=== PATIENT | male | born 1955 | race African-American/Black ===

== ENCOUNTER 2020-10-11 11:39 | Inpatient (IN) | payer OTHER, SELFPAY ==
[2020-10-11] MEDS ORDERED: Boostrix 0.5 ML (Tdap) VIAL ONE (11:41)
[2020-10-11 11:57] LABS: #Eosinphils 0.1 thou/uL (0.0-0.7); #Lymphocytes 1.6 thou/uL (1.20-3.40); #Monocytes 0.6 thou/uL (0.11-0.59); #Neutrophils 3.8 thou/uL (1.40-6.50); %Basophils 0.3 % (0.0-1.0); %Eosinophils 1.1 % (0.0-10.0); %Lymphocytes 26.5 % (21.0-51.0); %Monocytes 9.1 % (0.0-10.0); %Neutrophils 62.9 % (42.0-75.0); Hemoglobin 14.3 g/dL (14.0-18.0); Mean Corpuscular HGB CONC 32.3 g/dL (32.0-36.0); Mean Corpuscular Volume 83.7 fL (78.0-98.0); Mean Platelet Volume 9.5 fL (7.4-10.4); Platelet Count 140 thou/uL (130-400); RBC Distribution Width 12.9 % (11.5-14.5); Red Blood Cell (RBC) Count 5.31 mill/uL (4.70-6.10)
[2020-10-11] MEDS ORDERED: niCARdipine 20MG In NaCl 20 MG/200 ML BAG ONE (11:57)
--- NOTE | 2020-10-11 12:08 | CT ---
CT HEAD WITHOUT IV CONTRAST COMPARISON: None HISTORY: Level 2 trauma. Patient hit head with loss of consciousness. Head laceration. TECHNIQUE: Axial CT imaging at 5 mm intervals from vertex through skull base without contrast FINDINGS: There is diminished attenuation are seen in the periventricular white matter which are nonspecific bu t likely attributable to chronic small vessel ischemic changes. Low attenuation areas are seen in the left basal ganglia which are nonspecific but likely related to lacunar infarctions of indetermina te age. There is no evidence of an acute cortical infarction, hemorrhage, mass effect, or midline shift. The ventricular system is normal in size, shape, and position. Skull base has a normal CT appearance. Visualized paranasal sinuses are clear. Osseous structures appear intact.No calvarial fracture is seen. There is scalp soft tissue swelling seen at the vertex and in the posterior parietal regions as well as anterior frontal region. Subcutaneous emphysema seen in the posterior parietal region related to associated laceration. IMPRESSION: 1. No acute intracranial abnormality demonstrated. 2. Mild chronic small vessel ischemic changes with indeterminate age lacunar infarctions left basal g anglia. 3. Scalp hematoma at the vertex and in each posterior parietal region as well as anterior frontal reg ion. Evidence of laceration in the posterior parietal region. 4. Above findings discussed with Dr. Willis in the emergency department on 10/11/2020 at 1203 hours.
[2020-10-11 12:22] LABS: ALT (SGPT) 17 U/L (8-55); AST (SGOT) 21 U/L (5-34); Albumin 4.2 g/dL (3.4-4.8); Alkaline Phosphatase 119 U/L (40-110); Anion Gap 13 mmol/L (10-20); BUN (Urea Nitrogen) 11 mg/dL (8.4-25.7); Bilirubin, Total 0.4 mg/dL (0.2-1.2); Calc. Creatinine Clearance 0 mL/min (70-130); Calcium 8.6 mg/dL (7.8-10.44); Carbon Dioxide 26 mmol/L (23-31); Chloride 104 mmol/L (98-107); Globulin 3.7 g/dL (2.4-3.5); Glucose 128 mg/dL (80-115); Lipase 17 U/L (8-78); Potassium 3.4 mmol/L (3.5-5.1); Protein, Total 7.9 g/dL (5.8-8.1); Sodium 140 mmol/L (136-145)
[2020-10-11] MEDS ORDERED: Lidocaine 1% (PF) 30 ML VIAL ONE (12:23)
[2020-10-11] MEDS ORDERED: Ondansetron PF 4 MG/2 ML Vial ONE (12:29)
[2020-10-11] MEDS ORDERED: niCARdipine 25 MG in Sodium Chloride 0.9% 250 ML 250 ML IVPB PRN (13:36)
--- NOTE | 2020-10-11 13:37 | PDOC.HHP ---
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 He sustained a scalp laceration and had a significant amount of bleeding which was poorly controlled with a dressing. He briefly lost consciousness and was brought to the ER for further evaluation. THe patient denies headaches, weakness in his arms or legs, numbness or tingling in his arms or legs, chest pain, shortness of breath or abdominal pain. He denied palpitations, dizziness or lightheadedness. He denies any history of bleeding disorders. WHen he presented to the ER, his blood pressure was 215/115. The patient states he did not take any of his blood pressure medicine at home. In fact, he reports that he never takes his blood pressure medicine ED Course: When the patient presented to the emergency room, the patient had a blood pressure of 215/114. Respiratory rate was 20, heart rate 65, temp 97.7, O2 sat 96% on room air. CBC was normal. BMP showed potassium of 3.4. LFTs showed elevated ALP 119. Troponin was 0.033. Covid was negative, flu was negative. CT head showed no acute abnormality. There were indeterminate age lacunar infarctions in left basal ganglia. There is scalp hematoma at the vertex in the posterior parietal region as well as the anterior frontal region and evidence of laceration the posterior parietal region. Patient had 13 stitches placed i ncluding a [id number] stitch around his artery which controlled the bleeding. He was started on a nicardipine drip, and 1 L of fluid, 4 mg of Zofran and 2 grams of cefazolin. Allergies/Adverse Reactions: Allergy/AdvReac Type Severity Reaction Status Date / Time No Known Allergies Allergy Unverified 10/11/20 13:44 Past History: PMHx: HTN Diabetes Hyperlipidemia PSHx: Surgery to fix leg got chopped with an axe Leg surgery for broken leg FHx: HtN mother Father diabetes, hypertension Social: does not smoke, drinks occasionally. Former cocaine, no longer Hospitalist HPI ROS Constitutional: denies: fever, chills Eyes: denies: pain, vision change ENT: denies: ear pain, ear discharge, nose pain Respiratory: denies: shortness of breath Cardiovascular: denies: chest pain, palpitations Gastrointestinal: denies: nausea, vomiting, abdominal pain, diarrhea Musculoskeletal: denies: neck pain, shoulder pain Neurological: denies: weakness, numbness Hospitalist Exam General - other findings: blood on posterior scalp, sutures Eye: PERRL, anicteric sclera Eye - other findings: swelling in between eyebrows ENT: normocephalic atraumatic, no oropharyngeal lesions Neck: no JVD Heart: RRR, no murmur, no gallops, no rubs Respiratory: CTAB, no wheezes, no rales, no ronchi Gastrointestinal: soft, non-tender, non-distended, normal bowel sounds Extremities: no cyanosis, no clubbing, no edema Skin: normal turgor, no lesions, no rashes Neurological: cranial nerve grossly intact, normal sensation to touch, no weakness. negative: facial droop Neurological - other findings: left ptosis. Pupils reactive Musculoskeletal: normal tone, normal strength, no muscle wasting Psychiatric: normal affect, normal behavior, A&O x 3 Hospitalist Results Result Diagrams: 10/11/20 11:45 10/11/20 11:45 Lab results: Laboratory Last Values WBC 6.0 thou/uL (4.8-10.8) 10/11/20 11:45 RBC 5.31 mill/uL (4.70-6.10) 10/11/20 11:45 Hgb 14.3 g/dL (14.0-18.0) 10/11/20 11:45 Hct 44.4 % (42.0-52.0) 10/11/20 11:45 MCV 83.7 fL (78.0-98.0) 10/11/20 11:45 MCH 27.0 pg (27.0-31.0) 10/11/20 11:45 MCHC 32.3 g/dL (32.0-36.0) 10/11/20 11:45 RDW 12.9 % (11.5-14.5) 10/11/20 11:45 Plt Count 140 thou/uL (130-400) 10/11/20 11:45 MPV 9.5 fL (7.4-10.4) 10/11/20 11:45 Neutrophils % 62.9 % (42.0-75.0) 10/11/20 11:45 Lymphocytes % 26.5 % (21.0-51.0) 10/11/20 11:45 Monocytes % 9.1 % (0.0-10.0) 10/11/20 11:45 Eosinophils % 1.1 % (0.0-10.0) 10/11/20 11:45 Basophils % 0.3 % (0.0-1.0) 10/11/20 11:45 Neutrophils # 3.8 thou/uL (1.40-6.50) 10/11/20 11:45 Lymphocytes # 1.6 thou/uL (1.20-3.40) 10/11/20 11:45 Monocytes # 0.6 thou/uL (0.11-0.59) H 10/11/20 11:45 Eosinophils # 0.1 thou/uL (0.0-0.7) 10/11/20 11:45 Basophils # 0.0 thou/uL (0.0-0.2) 10/11/20 11:45 Sodium 140 mmol/L (136-145) 10/11/20 11:45 Potassium 3.4 mmol/L (3.5-5.1) L 10/11/20 11:45 Chloride 104 mmol/L (98-107) 10/11/20 11:45 Carbon Dioxide 26 mmol/L (23-31) 10/11/20 11:45 Anion Gap 13 mmol/L (10-20) 10/11/20 11:45 BUN 11 mg/dL (8.4-25.7) 10/11/20 11:45 Creatinine 1.04 mg/dL (0.7-1.3) 10/11/20 11:45 Estimated GFR (MDRD) 71 10/11/20 11:45 Glucose 128 mg/dL (80-115) H 10/11/20 11:45 Calcium 8.6 mg/dL (7.8-10.44) 10/11/20 11:45 Total Bilirubin 0.4 mg/dL (0.2-1.2) 10/11/20 11:45 AST 21 U/L (5-34) 10/11/20 11:45 ALT 17 U/L (8-55) 10/11/20 11:45 Alkaline Phosphatase 119 U/L (40-110) H 10/11/20 11:45 Serum Total Protein 7.9 g/dL (5.8-8.1) 10/11/20 11:45 Albumin 4.2 g/dL (3.4-4.8) 10/11/20 11:45 Globulin 3.7 g/dL (2.4-3.5) H 10/11/20 11:45 Albumin/Globulin Ratio 1.1 g/dL (1.2-2.2) L 10/11/20 11:45 Lipase 17 U/L (8-78) 10/11/20 11:45 Hospitalist H&P A/P Plan: CT head : no acute abnormality. There were indeterminate age lacunar infarctions in left basal ganglia. There is scalp hematoma at the vertex in the posterior parietal region as well as the anterior frontal region and evidence of laceration the posterior parietal region Cervical spine CT: no acute cervical spine fracture This 65-year-old male with a past medical history of hypertension, diabetes who presented to the emergency room after he fell onto his forklift and sustained a scalp laceration requiring sutures. He was admitted for hypertensive emergency #Acute encephalopathy secondary to concussion from closed head injury with scalp laceration status post suture #Hypertensive emergency: -Patient was placed on a nicardipine drip. Patient blood pressure was 190 systolic. He was started on Coreg 6.25 twice daily, hydralazine 25 mg 3 times daily. Patient and his family members do not know what blood pressure medication he takes at home - aim for blood pressure goal around 140. Type 2 diabetes: -Patient does not know what medicines he is on at home. Hyperlipidemia: -We will order atorvastatin Dispo: will monitor overnight, will order PT for tomorrow. Possibly d/c tomorrow if BP is controlled
--- NOTE | 2020-10-11 13:49 | CT ---
CT CERVICAL SPINE WITHOUT CONTRAST: Date: 10/11/2020 HISTORY: Level II trauma, neck pain. FINDINGS: There are degenerative changes, most prominent at C6-7 level. No acute fracture, subluxation, or face t malalignment is seen. The prevertebral soft tissues are unremarkable. The upper lung echols are berny ar. IMPRESSION: No CT evidence of acute cervical spine fracture or traumatic subluxation. Discussed over the telephone with ER physician, Dr. Chance Willis, at 1203 hours. CODE CR. POS: MZA
[2020-10-11 14:42] LABS: SARS-CoV-2 NAA Rapid Test Not Detected (NotDetected)
[2020-10-11 15:43] LABS: Troponin I 0.033 ng/mL (< 0.028)
[2020-10-11] MEDS: Carvedilol 6.25 MG TAB PO SCH ×2 (15:51→23:08)
[2020-10-11] MEDS: Lisinopril 5 MG TAB PO SCH (15:51)
[2020-10-11] MEDS ORDERED: hydrALAZINE 25 MG TAB ONE (17:22)
[2020-10-11] MEDS: hydrALAZINE 25 MG TAB PO PRN (17:23)
[2020-10-11 21:04] VITALS: BMI 37.0
[2020-10-12] MEDS: hydrALAZINE 25 MG TAB PO PRN ×3 (00:46→15:00)
[2020-10-12 04:38] LABS: Hemoglobin 12.3 g/dL (14.0-18.0); Mean Corpuscular HGB CONC 32.4 g/dL (32.0-36.0); Mean Corpuscular Hemoglobin 26.8 pg (27.0-31.0); Mean Corpuscular Volume 82.9 fL (78.0-98.0); Mean Platelet Volume 9.8 fL (7.4-10.4); Platelet Count 136 thou/uL (130-400); RBC Distribution Width 12.9 % (11.5-14.5); Red Blood Cell (RBC) Count 4.59 mill/uL (4.70-6.10); White Blood Cell (WBC) Count 7.7 thou/uL (4.8-10.8)
[2020-10-12 04:54] LABS: ALT (SGPT) 14 U/L (8-55); AST (SGOT) 19 U/L (5-34); Albumin 3.5 g/dL (3.4-4.8); Alkaline Phosphatase 100 U/L (40-110); Anion Gap 14 mmol/L (10-20); BUN (Urea Nitrogen) 12 mg/dL (8.4-25.7); Bilirubin, Total 0.6 mg/dL (0.2-1.2); Calc. Creatinine Clearance 122 mL/min (70-130); Calcium 8.2 mg/dL (7.8-10.44); Carbon Dioxide 26 mmol/L (23-31); Chloride 104 mmol/L (98-107); Globulin 3.2 g/dL (2.4-3.5); Glucose 138 mg/dL (80-115); Potassium 3.6 mmol/L (3.5-5.1); Protein, Total 6.7 g/dL (5.8-8.1); Sodium 140 mmol/L (136-145)
[2020-10-12] MEDS: hydrALAZINE 20 MG/ML VIAL SLOW IVP PRN ×2 (05:11→13:38)
[2020-10-12 06:08] LABS: Lymphocytes 22 % (21-51); MDiff Complete? YES; Metamyelocyte 2 % (0-0); Monocytes 6 % (0-10); Neutrophil 69 % (42-75); Platelet Morphology Comment Appears Adequate; Reactive Lymphocytes 1 % (0-10)
[2020-10-12] MEDS: Lisinopril 5 MG TAB PO SCH (09:34)
[2020-10-12] MEDS ORDERED: Lisinopril 10 MG TAB PO SCH (10:30)
[2020-10-12] MEDS ORDERED: Amlodipine 10 MG TAB PO SCH (10:30)
[2020-10-12] MEDS: Carvedilol 6.25 MG TAB PO SCH (11:04)
[2020-10-12] MEDS ORDERED: cloNIDine 0.1 MG TAB PO PRN (16:38)
--- NOTE | 2020-10-12 19:27 | PDOC.DS.DS ---
Provider Date of Admission: 10/11/20 14:54 Date of Discharge: 10/12/20 Admitting Provider: Stella Inman MD Primary Care Physician: OUT OF TOWN Course Hospital Course: BRIEF HOSPITAL COURSE Mr. Trinidad is a 65-year-old male with past medical history of hypertension, type 2 diabetes mellitus, hyperlipidemia who presented to the emergency room after an accident involving a forklift at work. 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 He sustained a scalp laceration had a significant amount of bleeding. He did lose consciousness for a brief period of time after hitting his head and he was brought to the emergency room for further evaluation. The patient had no neurologic symptoms and a head CT showed no acute abnormalities. There were however age-indeterminate lacunar infarcts in the left basal ganglia. The a scalp laceration and hematoma was repaired by the emergency room physician including a [id number] stitch around a subcutaneous artery. Bleeding was controlled. Patient remained neurologically intact with no other symptoms. The trauma service was consulted by the emergency room physician who reported that he did not meet inpatient criteria for them and that he should continue with outpatient follow-up, however the patient was noted to be in hypertensive urgency with blood pressure of 215/115 and was thus admitted to the medicine service for hypertensive urgency and observation. The emergency room briefly started patient on a nicardipine drip, and he was transitioned to oral antihypertensives. Patient is on multiple home blood pressure medications and once these were continued his blood pressure was in an acceptable range. Patient had no overnight events and review of telemetry monitoring showed no significant arrhythmias. Patient remained neurologically intact and had a completely normal neurologic exam. Patient requesting to go home on day of discharge. Advised patient that he should immediately return to the emergency room should he develop any changes to his vision, new numbness weakness or paresthesias. He should also return if he develops any new worsening or other concerning symptoms. Patient demonstrated verbal understanding of this. Also advised patient that since there is some swelling around his eye that he should avoid driving for a few days until the swelling goes down. Given patient's continued hypertension, encourage patient to continue his home blood pressure medications and to follow-up within the next week with his primary care provider to both check his blood pressure current prescriptions as well as to remove his scalp sutures. Patient was also seen and examined by attending physician, Dr. Rea was in agreement with assessment and plan for discharge home with return precautions. Pertinent Studies: CT HEAD WITHOUT IV CONTRAST COMPARISON: None HISTORY: Level 2 trauma. Patient hit head with loss of consciousness. Head laceration. TECHNIQUE: Axial CT imaging at 5 mm intervals from vertex through skull base without contrast FINDINGS: There is diminished attenuation are seen in the periventricular white matter which are nonspecific but likely attributable to chronic small vessel ischemic changes. Low attenuation areas are seen in the left basal ganglia which are nonspecific but likely related to lacunar infarctions of indeterminate age. There is no evidence of an acute cortical infarction, hemorrhage, mass effect, or midline shift. The ventricular system is normal in size, shape, and position. Skull base has a normal CT appearance. Visualized paranasal sinuses are clear. Osseous structures appear intact.No calvarial fracture is seen. There is scalp soft tissue swelling seen at the vertex and in the posterior parietal regions as well as anterior frontal region. Subcutaneous emphysema seen in the posterior parietal region related to associated laceration. IMPRESSION: 1. No acute intracranial abnormality demonstrated. 2. Mild chronic small vessel ischemic changes with indeterminate age lacunar infarctions left basal ganglia. 3. Scalp hematoma at the vertex and in each posterior parietal region as well as anterior frontal region. Evidence of laceration in the posterior parietal region. 4. Above findings discussed with Dr. Willis in the emergency department on 10/11/[address] CERVICAL SPINE WITHOUT CONTRAST: Date: 10/11/2020 HISTORY: Level II trauma, neck pain. FINDINGS: There are degenerative changes, most prominent at C6-7 level. No acute fracture, subluxation, or facet malalignment is seen. The prevertebral soft tissues are unremarkable. The upper lung echols are clear. IMPRESSION: No CT evidence of acute cervical spine fracture or traumatic subluxation. Discussed over the telephone with ER physician, Dr. Chance Willis, at 1203 hours. CODE CR. Resuscitation Status: 10/11/20 13:54 Resuscitation Status Routine Resuscitation Status: FULL: Full Resuscitation Discussed with: patient Lab Results: 10/12/20 03:57 10/12/20 03:57 Abnormal Lab Results - Last 48 hrs 10/11/20 11:45: Potassium 3.4 L, Alkaline Phosphatase 119 H, Globulin 3.7 H, Albumin/Globulin Ratio 1.1 L 10/11/20 11:45: Monocytes # 0.6 H 10/11/20 15:09: Troponin I 0.033 H 10/11/20 18:49: Troponin I 0.030 H 10/12/20 03:57: Albumin/Globulin Ratio 1.1 L 10/12/20 03:57: RBC 4.59 L, Hgb 12.3 L, Hct 38.1 L, MCH 26.8 L Laboratory Tests 10/11/20 10/11/20 10/11/20 11:45 11:45 13:32 WBC 6.0 RBC 5.31 Hgb 14.3 Hct 44.4 MCV 83.7 MCH 27.0 MCHC 32.3 RDW 12.9 Plt Count 140 MPV 9.5 Neutrophils % 62.9 Neutrophils % (Manual) Lymphocytes % 26.5 Lymphocytes % (Manual) Reactive Lymphs % Monocytes % 9.1 Monocytes % (Manual) Eosinophils % 1.1 Basophils % 0.3 Metamyelocytes % (Man) Neutrophils # 3.8 Lymphocytes # 1.6 Monocytes # 0.6 H Eosinophils # 0.1 Basophils # 0.0 Plt Morphology Comment Sodium 140 Potassium 3.4 L Chloride 104 Carbon Dioxide 26 Anion Gap 13 BUN 11 Creatinine 1.04 Estimated GFR (MDRD) 71 Glucose 128 H Calcium 8.6 Total Bilirubin 0.4 AST 21 ALT 17 Alkaline Phosphatase 119 H Troponin I Serum Total Protein 7.9 Albumin 4.2 Globulin 3.7 H Albumin/Globulin Ratio 1.1 L Lipase 17 Influenza A RNA INAAT Not Detected Influenza B RNA INAAT Not Detected SARS-CoV-2 Rap RNA(RT-PCR) Not Detected 10/11/20 10/11/20 10/12/20 15:09 18:49 03:57 WBC RBC Hgb Hct MCV MCH MCHC RDW Plt Count MPV Neutrophils % Neutrophils % (Manual) Lymphocytes % Lymphocytes % (Manual) Reactive Lymphs % Monocytes % Monocytes % (Manual) Eosinophils % Basophils % Metamyelocytes % (Man) Neutrophils # Lymphocytes # Monocytes # Eosinophils # Basophils # Plt Morphology Comment Sodium 140 Potassium 3.6 Chloride 104 Carbon Dioxide 26 Anion Gap 14 BUN 12 Creatinine 1.01 Estimated GFR (MDRD) 90 Glucose 138 H Calcium 8.2 Total Bilirubin 0.6 AST 19 ALT 14 Alkaline Phosphatase 100 Troponin I 0.033 H 0.030 H Serum Total Protein 6.7 Albumin 3.5 Globulin 3.2 Albumin/Globulin Ratio 1.1 L Lipase Influenza A RNA INAAT Influenza B RNA INAAT SARS-CoV-2 Rap RNA(RT-PCR) 10/12/20 03:57 WBC 7.7 RBC 4.59 L Hgb 12.3 L Hct 38.1 L MCV 82.9 MCH 26.8 L MCHC 32.4 RDW 12.9 Plt Count 136 MPV 9.8 Neutrophils % Neutrophils % (Manual) 69 Lymphocytes % Lymphocytes % (Manual) 22 Reactive Lymphs % 1 Monocytes % Monocytes % (Manual) 6 Eosinophils % Basophils % Metamyelocytes % (Man) 2 H Neutrophils # Lymphocytes # Monocytes # Eosinophils # Basophils # Plt Morphology Comment Appears Adequate Sodium Potassium Chloride Carbon Dioxide Anion Gap BUN Creatinine Estimated GFR (MDRD) Glucose Calcium Total Bilirubin AST ALT Alkaline Phosphatase Troponin I Serum Total Protein Albumin Globulin Albumin/Globulin Ratio Lipase Influenza A RNA INAAT Influenza B RNA INAAT SARS-CoV-2 Rap RNA(RT-PCR) Vitals: Vital Signs (12 hours) Temp Pulse Resp BP BP Pulse Ox 10/12/20 15:55 85 151/78 H 10/12/20 15:29 99.2 F 90 13 179/97 H 96 10/12/20 15:00 83 178/91 H 10/12/20 14:47 83 178/91 H 10/12/20 13:52 79 172/95 H 10/12/20 13:38 70 176/103 H 10/12/20 12:15 185/103 H 10/12/20 11:15 98.0 F 90 18 173/99 H 96 10/12/20 08:35 97.6 F 73 18 180/94 H 96 Weight Weight 265 lb 3 oz Physical Exam: The patient was seen and examined on the day of discharge. NAD, AOx3 Normocephalic, atraumatic Neck supple, no JVD, no lymphadenopathy RRR, no murmurs, rubs, or gallops Lungs CTAB, no wheezes, no dyspnea or tachypnea Abdomen soft, non-tender with normoactive bowel sounds Skin warm with no rashes, normal turgor Extremities with no edema and intact peripheral pulses Normal tone and muscle strength No focal deficits, no weakness, cerebellar movements intact, no pronator drift, normal funduscopic exam Problem Assessment: Scalp laceration Keep area clean and dry Follow-up in 7 to 10 days with primary care provider to remove sutures Hypertensive Urgency Continue home medications including amlodipine, hydralazine, lisinopril, Cat apres Follow-up with primary care provider in 1 week for further monitoring and adjustment of blood pressure medications as needed T2DM Continue home metformin PCP follow-up Hyperlipidemia Continue home statin Case discussed with attending physician Dr. Burroughs who also saw and examined patient on day of discharge. She is in agreement with assessment and plan as above. Time Spent in discharge related activities (mins): 45 Plan Home Medications: Medication Instructions Recorded Confirmed Type Amlodipine [Norvasc] 10 mg PO DAILY 10/11/20 10/11/20 History Amlodipine [Norvasc] 10 mg PO DAILY tab 10/12/20 Rx Lisinopril [Zestril] 40 mg PO DAILY tab 10/12/20 Rx cloNIDine [Catapres] 0.1 mg PO Q4H PRN tab 10/12/20 Rx hydrALAZINE [Apresoline] 25 mg PO TID PRN tab 10/12/20 Rx Allergies: No Known Allergies Allergy (Verified 10/11/20 21:20) Discharge Instructions:: You were admitted to the hospital because you fell and hit your head. A brain CT was done which showed no brain bleeding, but you did have a laceration to your scalp. This was repaired by the ER doctor. Your blood pressure was high, so you were monitored for 24 hours. Your home blood pressure medications were re- started and your blood pressure was under good control. You will need to follow up with your primary care provider in one week to check on your blood pressure an adjust any medications. You will also need to follow up for your suture removal. Because you have swelling to your eye, you may not return to work until WednesdayOct 15. If your eye swelling does not improve, do not drive and follow up with your primary care provider. If your swelling gets worse, or you have any changes in your vision, return to the emergency room. RETURN TO THE EMERGENCY ROOM OR CALL 911 IMMEDIATELY if you develop any changes in vision, numbness, weakness, headache, or any other new or concerning symptoms. Activity:: Activity as Tolerated Nourishment:: Diabetic Diet Referrals: [facility]IAN,OUT OF [Primary Care Provider] - 7 Days (Please follow up with your primary care provider for a check on your blood pressure.) Disposition: HOME Quality CORE MEASURES:: N/A
[2020-10-13] MEDS: hydrALAZINE 25 MG TAB PO PRN (00:01)
[2020-10-13 00:02] VITALS: BP 174/101
[2020-10-13 00:04] VITALS: TEMP 98.3
[2020-10-13] MEDS ORDERED: Lisinopril 20 MG TAB PO SCH (09:00)
[2020-10-13] MEDS ORDERED: Amlodipine 10 MG TAB PO SCH (09:00)
== END 2020-10-13 00:10 | disposition home or self-care (01) | DRG 88 ==
LOC: ERS 11:39 → ERHOLD 14:54 → 2NO 21:07
PROVIDERS: ADMIT Internal Medicine; ATTEND Internal Medicine
PROC: 0HQ0XZZ Repair Scalp Skin, External Approach (ICD-10-PCS; principal; 2020-10-11)
DX: S06.0X9A Concussion with loss of consciousness of unspecified duration, initial encounter (principal); I63.81 Other cerebral infarction due to occlusion or stenosis of small artery; I16.1 Hypertensive emergency; S00.03XA Contusion of scalp, initial encounter; S01.01XA Laceration without foreign body of scalp, initial encounter; Z20.822 Contact with and (suspected) exposure to COVID-19; I10 Essential (primary) hypertension; E11.9 Type 2 diabetes mellitus without complications; E78.5 Hyperlipidemia, unspecified; I16.0 Hypertensive urgency; E78.00 Pure hypercholesterolemia, unspecified; F12.10 Cannabis abuse, uncomplicated; R40.2412 Glasgow coma scale score 13-15, at arrival to emergency department; V83.7XXA Person on outside of special industrial vehicle injured in nontraffic accident, initial encounter
CPT/HCPCS: 0240U; 12002; 36415; 70450; 72125; 80053; 83690; 84484; 85007; 85025; 85027; 90471; 90715; 93005; 96365; 96366; 96367; 96375; G0390; J0360; J0690; J2001; J2405; J7050